=== PATIENT | female | born 1975 | race Caucasian/White ===

== ENCOUNTER → 2016-11-13 | Outpatient (CLI) | payer BC, OTHER ==
--- NOTE | 2016-11-14 15:35 | CT ---
EXAMINATION TYPE: CT iac w con DATE OF EXAM: 11/13/2016 2:38 PM COMPARISON: MRI brain August HISTORY: Abnormal MRI per patient CT DLP: 224 mGycm Automated exposure control for dose reduction was used. CONTRAST: CT scan of the IACs is performed with IV Contrast, patient injected with 100 mL of Omnipaque 300. FINDINGS: At the level of the abnormality noted on prior MRI there is a small fluid filled focus with in the mastoid air cells which is stable and shows a nonaggressive appearance. Minimal additional inf lammatory changes present within the mastoid air cells on the right. Mucosal changes are present with in the maxillary sinuses bilaterally. No abnormal enhancement following contrast administration. The external auditory canals are patent bilaterally. Mastoid air cells show no evidence of abnormal opac ification bilaterally. The middle ear ossicles are symmetric and unremarkable. There is no evidence of suspicious surrounding soft tissue density to suggest cholesteatoma. The scutum is preserved ruth aterally. The cochlea and the semicircular canals are symmetric and unremarkable. Vestibular aquedu ct and internal carotid canal appear unremarkable. Temporomandibular joints are maintained bilateral ly. IMPRESSION: Benign inflammatory change within the mastoid air cells on the right. Sinus disease in th e maxillary sinuses as described.
== END ==
LOC: RADCTMAIN 13:59
PROVIDERS: ATTEND Family Medicine
DX: H70.91 Unspecified mastoiditis, right ear (principal); J32.0 Chronic maxillary sinusitis
CPT/HCPCS: 70481; Q9967

== ENCOUNTER → 2018-02-22 | Outpatient (CLI) | payer BC, OTHER ==
[2018-02-22 13:04] LABS: Basophils % (A) 1 %; Eosinophils # (A) 0.1 k/uL (0-0.7); Eosinophils % (A) 1 %; HCT 41.4 % (34.0-46.0); HGB 13.3 gm/dL (11.4-16.0); Lymphocytes % (A) 29 %; MCH 28.9 pg (25.0-35.0); MCHC 32.1 g/dL (31.0-37.0); MCV 90.2 fL (80.0-100.0); Mean Platelet Volume 6.8; Monocytes # (A) 0.4 k/uL (0-1.0); Monocytes % (A) 5 %; Neutrophils # (A) 4.4 k/uL (1.3-7.7); Neutrophils % (A) 63 %; Platelet Count 285 k/uL (150-450); RBC 4.59 m/uL (3.80-5.40); RDW 13.8 % (11.5-15.5); WBC 6.9 k/uL (3.8-10.6)
== END | disposition home or self-care (01) ==
LOC: LABPAT 12:16
PROVIDERS: ATTEND Obstetrics & Gynecology Obstetrics
DX: Z01.812 Encounter for preprocedural laboratory examination (principal); N92.0 Excessive and frequent menstruation with regular cycle
CPT/HCPCS: 36415; 85025

== ENCOUNTER 2018-03-01 07:51 | Day surgery (SDC) | payer BC, OTHER ==
[2018-02-24 14:22] VITALS: BMI 38.7
[~2018-03-01 07:51] MED LIST: DEXAMETHASONE SOD PHOSPHATE 10 MG/ML 1 ML VIAL IV ONE; HYDROmorphone 0.5 MG/0.5 ML SYRINGE IVP PRN; LACTATED RINGERS 1,000 ML IV SCH; MORPHINE SULFATE 4 MG/ML SYRINGE IV PRN; ONDANSETRON 4 MG/2 ML VIAL IVP ONE; Pre Op ABX Message 1 EACH MISC MISCELLANE ONE
[2018-03-01 08:13] VITALS: RESP 16
[2018-03-01] MEDS ORDERED: ACETAMINOPHEN IV (For NPO) 1,000 MG/100 ML VIAL ONE (10:54)
[2018-03-01] MEDS ORDERED: fentaNYL (PF) 50 MCG/ML 2 ML AMP ONE (10:54)
[2018-03-01] MEDS ORDERED: LIDOCAINE 1% INJ 10MG/ML (20 ML MDV) ONE (10:54)
[2018-03-01] MEDS ORDERED: PROPOFOL 10 MG/ML 20 ML VIAL IV ONE (10:54)
[2018-03-01] MEDS ORDERED: MIDAZOLAM 2 MG/2 ML VIAL ONE (10:54)
[2018-03-01] MEDS ORDERED: SILVER NITRATE APPLICATOR 1 EACH STICK..EA. TOPICAL ONE (11:26)
--- NOTE | 2018-03-01 11:33 | P.OP ---
Date of Procedure: 03/01/18 Preoperative Diagnosis: Heavy menstrual bleeding, on xarelto, Postoperative Diagnosis: same Anesthesia: MAC Surgeon: Betty Espino Estimated Blood Loss (ml): 10 IV fluids (ml): 400 Urine output (ml): 100 Pathology: other (Endometrial curettings) Condition: stable Disposition: PACU Indications for Procedure: Heavy menstrual bleeding Operative Findings: Normal proliferative endometrium is noted Description of Procedure: Patient was seen in the preoperative suite and informed consent was obtained was reviewed in detail including but not limited to infection, bleeding, uterine perforation. Informed consent was obtained and she was brought back to the operating suite. General anesthesia was obtained without difficulty by the anesthesia department. She was then prepped and draped in the normal sterile fashion in the dorsal lithotomy position a weighted speculum was placed in the posterior vaginal vault the antral of the cervix was visualized and grasped with a single-tooth tenaculum. The endocervical canal was then dilated to 18- Ethiopian hysteroscope was placed through the cervix and toward the endometrial cavity intact cavity was noted on hysteroscopy and a proliferative endometrium was noted as stated above. At this point the hysteroscope was removed and a sharp curettage was performed until gritty texture was noted in all 4 quadrants of the endometrial cavity. At this point the NovaSure device was opened and set to the patient's uterine measurements a length of 5 with a 2.7 power of 74 with a time of 107 seconds. This was completed after the cavity had passed the cavity assessment prior to the in vitro ablation. After the cycle was complete the NovaSure device was removed without difficulty, the single tenaculum was taken off of the anterior lip the cervix small amount of bleeding was noted therefore silver nitrate was applied and hemostasis was then appreciated. All counts are correct 2 patient tolerated procedure well and was taken the recovery room awake in stable condition.
[2018-03-01 11:45] VITALS: TEMP 96.8
[2018-03-01] MEDS ORDERED: ACETAMINOPHEN TAB 325 MG TAB PO ONE (12:43)
[2018-03-01 12:47] VITALS: BP 122/78; PULSE 70
== END 2018-03-01 13:23 | disposition home or self-care (01) ==
LOC: OR 07:51
PROVIDERS: ATTEND Obstetrics & Gynecology Obstetrics
DX: N92.0 Excessive and frequent menstruation with regular cycle (principal); D68.2 Hereditary deficiency of other clotting factors; Z79.01 Long term (current) use of anticoagulants; Z79.899 Other long term (current) drug therapy; Z86.718 Personal history of other venous thrombosis and embolism; Z86.711 Personal history of pulmonary embolism
CPT/HCPCS: 81025; 88305; 58563; J2250; J1100; J2405; J2001; J3010; J0131; J2704

== ENCOUNTER → 2019-04-11 | Outpatient (CLI) | payer OTHER ==
[2019-04-11 08:56] LABS: African American GFR (CKD) >90 (>60 ml/min/1.73 sqM); Anion Gap 7 mmol/L; Blood Urea Nitrogen 14 mg/dL (7-17); Carbon Dioxide 24 mmol/L (22-30); Chloride 109 mmol/L (98-107); Glucose 91 mg/dL (74-99); Potassium 4.5 mmol/L (3.5-5.1); Sodium 140 mmol/L (137-145)
[2019-04-11 09:19] LABS: Basophils % (A) 1 %; Eosinophils # (A) 0.1 k/uL (0-0.7); Eosinophils % (A) 1 %; HCT 41.4 % (34.0-46.0); HGB 13.2 gm/dL (11.4-16.0); Lymphocytes # (A) 1.7 k/uL (1.0-4.8); Lymphocytes % (A) 29 %; MCH 28.3 pg (25.0-35.0); MCHC 31.8 g/dL (31.0-37.0); Monocytes # (A) 0.3 k/uL (0-1.0); Monocytes % (A) 5 %; Neutrophils # (A) 3.6 k/uL (1.3-7.7); Neutrophils % (A) 62 %; Platelet Count 289 k/uL (150-450); RBC 4.65 m/uL (3.80-5.40); RDW 13.3 % (11.5-15.5); WBC 5.8 k/uL (3.8-10.6)
== END | disposition home or self-care (01) ==
LOC: LABPAT 08:08
PROVIDERS: ATTEND Obstetrics & Gynecology Obstetrics
DX: Z01.812 Encounter for preprocedural laboratory examination (principal); N85.2 Hypertrophy of uterus; N92.0 Excessive and frequent menstruation with regular cycle; N80.0 Endometriosis of uterus; D68.51 Activated protein C resistance
CPT/HCPCS: 36415; 80051; 82565; 82947; 84520; 85025; 87086